=== PATIENT | female | born 1945 | race African-American/Black ===

== ENCOUNTER 2016-08-29 15:46 | Emergency (ER) | payer OTHER ==
[~2016-08-29] VITALS: Ht 152.4 cm; Wt 115.8 kg
[~2016-08-29 15:46] MED LIST: AMOXICILLIN500 MG PO; ATRIPLA TABLET1 EACH PO; Cipro PO; K-DUR20 MEQ; K-DUR20 MEQ PO; K-Dur PO; LASIX20 MG PO; LASIX40 MG PO; LISINOPRIL2.5 MG PO; LOTENSIN20 MG PO; MEPRON750 MG/5 M PO; METOLAZONE2.5 MG PO; NORVIR100 MG PO; Norvir PO; OxyCODONE PO; POTASSIUM-9999 MG PO; REYATAZ150 MG PO; REYATAZ300 MG PO; SULFAMETHOXAZO1 EAC4 PO; TRUVADA1 TABLET PO; Truvada PO; VICODIN,LORT1 TABLET; predniSONE PO
[2016-08-29 16:40] LABS: HEMATOCRIT 39.4 % (36.0-46.0); MCH 29.4 PG (29.0-34.0); MCHC 32.5 G/DL (30.0-36.0); MCV 90.4 FL (83-99); PLATELET COUNT 178 K/uL (156-360); RBC DIS.WIDTH-CV 13.6 % (11.8-14.6); RED BLOOD COUNT 4.36 M/uL (3.80-5.20); WHITE BLOOD COUNT 5.3 K/uL (4.1-10.2)
[2016-08-29 16:55] LABS: CHLORIDE 105 mEq/L (99-109); POTASSIUM 3.9 mEq/L (3.7-5.4); SODIUM 138 mEq/L (136-147)
[2016-08-29 16:57] LABS: GLUCOSE 152 mg/dL (70-99)
[2016-08-29 16:59] LABS: ANION GAP 7 MEQ/L (2-14)
[2016-08-29 17:01] LABS: GFR ESTIMATE (CALCULATED) > 59 mL/min/
[2016-08-29 17:02] LABS: UREA NITROGEN (BUN) 10 mg/dL (9-23)
[2016-08-29 17:03] LABS: TROP-I INTERPRETATION NEGATIVE; TROPONIN-I < 0.01 ng/mL (0.0-0.30)
[2016-08-29] MEDS ORDERED: ZITHROMAX Z-PA250 MG PO (19:42)
[2016-08-29] MEDS ORDERED: MEDROL DOSEPAK4 MG PO (19:42)
[2016-08-29] MEDS ORDERED: VENTOLIN HFA18 GM IH (19:42)
[2016-08-29 20:14] VITALS: BP 107/77
== END 2016-08-29 20:15 | disposition home or self-care (01) ==
LOC: EME 15:46
DX: J20.9 Acute bronchitis, unspecified (principal); I10 Essential (primary) hypertension; K21.9 Gastro-esophageal reflux disease without esophagitis; Z87.442 Personal history of urinary calculi; Z21 Asymptomatic human immunodeficiency virus [HIV] infection status
CPT/HCPCS: 71020; 80048; 84484; 85027; 93005; 94640; 99281; 99284; J7512